=== PATIENT | female | born 1995 | race Caucasian/White ===

== ENCOUNTER 2017-12-20 10:22 | Emergency (ER) | payer MEDICAID ==
[~2017-12-20] VITALS: Ht 154.9 cm; Wt 57.7 kg
[2017-12-20 10:26] VITALS: BP 143/52
[2017-12-20] MEDS ORDERED: cyclobenzaprine 10mg tablet PO ONE (11:35)
[2017-12-20] MEDS ORDERED: CYCL-1 PO (11:48)
== END 2017-12-20 12:02 | disposition home or self-care (01) ==
LOC: ER 10:22
DX: M43.6 Torticollis (principal); M25.512 Pain in left shoulder
CPT/HCPCS: 99283; L0172

== ENCOUNTER 2018-04-27 15:01 | Emergency (ER) | payer MEDICAID ==
[~2018-04-27] VITALS: Ht 154.9 cm; Wt 56.8 kg
[~2018-04-27 15:01] MED LIST: CYCL-1 PO
[2018-04-27] MEDS ORDERED: normal saline 1000ML IV soln IVB ONE (15:15)
[2018-04-27] MEDS ORDERED: ondansetron/PF 4mg/2ml inj IV ONE (15:15)
[2018-04-27 15:43] LABS: BASOPHILS % (AUTO) 0.3 % (0-1); EOSINOPHILS # (AUTO) 0.1 X10'3 (0-0.9); EOSINOPHILS % (AUTO) 1.1 % (0-6); HEMATOCRIT 40.3 % (35.0-45.0); HEMOGLOBIN 13.6 g/dl (12.0-16.0); LYMPHOCYTES # (AUTO) 2.1 X10'3 (1.1-4.8); LYMPHOCYTES % (AUTO) 28.4 % (21-51); MEAN CORPUSCULAR HEMOGLOBIN 31.8 PG (27.0-31.0); MEAN CORPUSCULAR HGB CONC 33.8 % (33.0-36.5); MEAN CORPUSCULAR VOLUME 94.1 FL (78-98); MEAN PLATELET VOLUME 9.3 FL (7.4-10.4); MONOCYTES # (AUTO) 0.9 X10'3 (0-0.9); MONOCYTES % (AUTO) 11.7 % (2-12); NEUTROPHILS # (AUTO) 4.4 X10'3 (1.8-7.7); NEUTROPHILS % (AUTO) 58.5 % (42-75); PLATELET COUNT 364 X10'3 (140-440); RED BLOOD COUNT 4.28 X10'6 (4.20-5.60); RED CELL DISTRIBUTION WIDTH 12.3 % (11.5-14.5); WHITE BLOOD COUNT 7.5 X10'3 (4.5-11.0)
[2018-04-27 15:51] LABS: CLARITY,URINE SLIGHTLY CLOUDY (Clear); COLOR,URINE YELLOW (Yellow); GLUCOSE, URINE NEGATIVE (Neg); KETONES,URINE TRACE mg/dl (Neg); LEUKOCYTE ESTERASE ,URINE NEGATIVE (Neg); NITRITES, URINE NEGATIVE (Neg); OCCULT BLOOD,URINE NEGATIVE (Neg); PROTEIN,URINE NEGATIVE (Neg); UROBILINOGEN,URINE 0.2 E.U/dL (0.2-1.0)
[2018-04-27 15:52] LABS: URINE HCG NEGATIVE (NEG)
[2018-04-27 15:56] LABS: UA COLLECTION TYPE CLN CATCH MIDSTREAM
[2018-04-27 15:57] LABS: ALANINE AMINOTRANSFERASE 20 U/L (12-78); ALBUMIN 4.3 G/DL (3.4-5.0); ALBUMIN/GLOBULIN RATIO 1.2 (1.1-1.5); ALKALINE PHOSPHATASE 81 IU/L (46-116); ANION GAP 10 (8-16); ASPARTATE AMINO TRANSFERASE 12 U/L (10-37); BILIRUBIN,TOTAL 0.6 MG/DL (0.1-1.0); BLOOD UREA NITROGEN 11 MG/DL (7-18); BUN/CREATININE RATIO 18.6 (6.6-38.0); CALCIUM 9.3 MG/DL (8.5-10.1); CHLORIDE 102 MMOL/L (99-107); CREATININE 0.59 MG/DL (0.40-0.90); GLUCOSE 86 MG/DL (70-104); POTASSIUM 3.6 MMOL/L (3.5-5.1); SODIUM 138 MMOL/L (135-145); TOTAL CARBON DIOXIDE 25.8 MMOL/L (24-32); TOTAL PROTEIN 7.8 G/DL (6.4-8.2); eGFR > 90 ML/MIN
[2018-04-27 15:57] LABS: BACTERIA,URINE NONE SEEN /HPF (Neg); RBC,URINE NONE SEEN /HPF (0-2); WBC,URINE NONE SEEN /HPF (0-4)
[2018-04-27 15:58] LABS: MUCUS STRANDS NONE SEEN /LPF (Neg); SQUAMOUS EPITHELIAL CELL,UR FEW /LPF (FEW)
[2018-04-27 16:06] VITALS: BP 138/76
== END 2018-04-27 16:21 | disposition home or self-care (01) ==
LOC: ER 15:02
DX: R11.2 Nausea with vomiting, unspecified (principal); R19.7 Diarrhea, unspecified; R05 Cough
CPT/HCPCS: 36415; 80053; 81001; 81025; 85025; 96361; 96374; 99283; J2405; J7030

== ENCOUNTER 2019-05-10 23:18 | Emergency (ER) | payer MEDICAID, OTHER ==
[~2019-05-10] VITALS: Ht 154.9 cm; Wt 52.0 kg
[2019-05-10] MEDS ORDERED: normal saline 1000ML IV soln IVB ONE (23:45)
--- NOTE | 2019-05-10 23:48 | NUR ---
Poison control contacted. They recommend to start treatment for any detectable tylenol level or elevated LFT due to the fact that there is no clear ingestion time for the nomogram.
[2019-05-10 23:51] LABS: BASOPHILS # (AUTO) 0.1 X10'3 (0-0.2); BASOPHILS % (AUTO) 0.8 % (0-1); EOSINOPHILS # (AUTO) 0.1 X10'3 (0-0.9); LYMPHOCYTES % (AUTO) 38.7 % (21-51); MEAN CORPUSCULAR HEMOGLOBIN 31.8 PG (27.0-31.0); MEAN CORPUSCULAR HGB CONC 34.1 g/dL (33.0-36.5); MEAN CORPUSCULAR VOLUME 93.3 FL (78-98); MEAN PLATELET VOLUME 9.2 FL (7.4-10.4); MONOCYTES % (AUTO) 9.7 % (2-12); NEUTROPHILS # (AUTO) 5.2 X10'3 (1.8-7.7); NEUTROPHILS % (AUTO) 49.8 % (42-75); PLATELET COUNT 318 X10'3 (140-440); RED BLOOD COUNT 4.07 X10'6 (4.20-5.60); RED CELL DISTRIBUTION WIDTH 12.6 % (11.5-14.5); WHITE BLOOD COUNT 10.4 X10'3 (4.5-11.0)
--- NOTE | 2019-05-10 23:51 | NUR ---
Dr. Jackson notified of poison control recommendations.
[2019-05-10] MEDS ORDERED: ondansetron/PF 4mg/2ml inj IV ONE (23:55)
[2019-05-10] MEDS ORDERED: pantoprazole 40 MG vial IV ONE (23:55)
[2019-05-11 00:03] LABS: ACETAMINOPHEN 4.5 UG/ML (10-30); ALANINE AMINOTRANSFERASE 24 U/L (12-78); ALBUMIN 4.2 G/DL (3.4-5.0); ALBUMIN/GLOBULIN RATIO 1.4 (1.1-1.5); ALKALINE PHOSPHATASE 58 IU/L (46-116); ANION GAP 11 (8-16); ASPARTATE AMINO TRANSFERASE 13 U/L (10-37); BILIRUBIN,TOTAL 0.6 MG/DL (0.1-1.0); BLOOD UREA NITROGEN 7 MG/DL (7-18); BUN/CREATININE RATIO 11.1 (6.6-38.0); CALCIUM 8.8 MG/DL (8.5-10.1); CHLORIDE 103 MMOL/L (99-107); CREATININE 0.63 MG/DL (0.40-0.90); GLUCOSE 98 MG/DL (70-104); LIPASE 70 U/L (73-393); SODIUM 139 MMOL/L (135-145); TOTAL CARBON DIOXIDE 25.3 MMOL/L (24-32); TOTAL PROTEIN 7.3 G/DL (6.4-8.2); eGFR > 90 ML/MIN
[2019-05-11 00:05] LABS: POTASSIUM 2.9 MMOL/L (3.5-5.1)
--- NOTE | 2019-05-11 00:09 | NUR ---
pt up to the [facility]
[2019-05-11 00:26] LABS: CLARITY,URINE CLEAR (Clear); COLOR,URINE YELLOW (Yellow); GLUCOSE, URINE NEGATIVE (Neg); KETONES,URINE NEGATIVE (Neg); LEUKOCYTE ESTERASE ,URINE NEGATIVE (Neg); NITRITES, URINE NEGATIVE (Neg); OCCULT BLOOD,URINE NEGATIVE (Neg); PROTEIN,URINE NEGATIVE (Neg); UA COLLECTION TYPE CLN CATCH MIDSTREAM; URINE HCG NEGATIVE (NEG); UROBILINOGEN,URINE 0.2 E.U/dL (0.2-1.0)
--- NOTE | 2019-05-11 00:28 | NUR ---
POISON CONTROL CONTACTED. REVIEWED CASE. INSTRUCTED TO NOT TAKE TYLENOL MINIMUM 24 HRS FROM 20O0. MAY USE IBUPROFEN AND ICE FOR BACK PAIN. SPOKE TO MANISHA, DIRECTOR REHABILITATION PROGRAM PHARMACIST.
--- NOTE | 2019-05-11 00:34 | NUR ---
DR GLOVER AND PT NOTIFIED OF WHAT POISON CONTROL STATED.
[2019-05-11] MEDS ORDERED: potassium Cl 20 mEq SR tablet PO ONE (01:10)
[2019-05-11 01:27] VITALS: BP 112/72
== END 2019-05-11 01:28 | disposition home or self-care (01) ==
LOC: ER 23:19
DX: T50.991A Poisoning by other drugs, medicaments and biological substances, accidental (unintentional), initial encounter (principal); M54.5 Low back pain; Z79.899 Other long term (current) drug therapy; Y92.89 Other specified places as the place of occurrence of the external cause
CPT/HCPCS: 36415; 80053; 80329; 81003; 81025; 83690; 85025; 96374; 96375; 99283; C9113; J2405; J7030

== ENCOUNTER 2021-06-15 15:28 | Emergency (ER) | payer MEDICAID ==
[~2021-06-15] VITALS: Ht 154.9 cm; Wt 54.0 kg
[2021-06-15 15:42] VITALS: BP 119/69
== END 2021-06-15 18:02 | disposition home or self-care (01) ==
LOC: ER 15:28
DX: S63.501A Unspecified sprain of right wrist, initial encounter (principal); W01.0XXA Fall on same level from slipping, tripping and stumbling without subsequent striking against object, initial encounter; Y93.89 Activity, other specified; Y92.89 Other specified places as the place of occurrence of the external cause; Y99.8 Other external cause status
CPT/HCPCS: 29125; 73110; 99283